=== PATIENT | male | born 1965 | race Caucasian/White ===

== ENCOUNTER 2018-05-07 08:56 | Day surgery (SDC) | payer BC ==
[~2018-05-07] VITALS: Ht 180.3 cm; Wt 101.2 kg
[~2018-05-07 08:56] MED LIST: CETI10TA18 PO; MAGN400C PO; METO-93 PO; POTA99TA8 PO
[2018-05-07] MEDS ORDERED: LACTATED RINGERS 1,000 ML IV SCH (09:26)
[2018-05-07] MEDS ORDERED: GABAPENTIN 300 MG CAPSULE PO ONE (09:30)
[2018-05-07] MEDS ORDERED: ONDANSETRON ODT 8 MG PO ONE (09:30)
[2018-05-07] MEDS ORDERED: ACETAMINOPHEN 500 MG TABLET PO ONE (09:30)
[2018-05-07] MEDS ORDERED: LIDOCAINE 1%-EPI 1:100K, 30ML ONE (09:43)
[2018-05-07] MEDS ORDERED: BUPIVACAINE/PF-EPI 0.5% 1:200K ONE (09:43)
[2018-05-07 09:55] VITALS: BP 143/87
[2018-05-07] MEDS ORDERED: FENTANYL PF 100 MCG/2ML ONE ×2 (10:54→12:56)
[2018-05-07] MEDS ORDERED: MIDAZOLAM 1 MG/ML, 2ML ONE (10:54)
[2018-05-07] MEDS ORDERED: CEFAZOLIN 1,000 MG ONE (10:57)
[2018-05-07] MEDS ORDERED: ONDANSETRON 2MG/ML, 2ML ONE (10:57)
[2018-05-07] MEDS ORDERED: DEXAMETHASONE 4 MG/ML, 1ML ONE (10:57)
[2018-05-07] MEDS ORDERED: PROPOFOL 10 MG/ML, 20ML ONE (10:57)
[2018-05-07] MEDS ORDERED: KETOROLAC 30 MG/1 ML ONE (11:53)
[2018-05-07] MEDS ORDERED: ONDANSETRON 2MG/ML, 2ML IV PRN (12:30)
[2018-05-07] MEDS ORDERED: HYDROmorphone 1 MG/ML, 1ML IV PRN (12:30)
[2018-05-07] MEDS ORDERED: ALBUTEROL/IPRATROPIUM 2.5MG/0.5MG, 3 ML NPPB PRN (12:30)
[2018-05-07] MEDS ORDERED: OXYcodone 5 MG/5 ML ORAL.SOL UDC PO PRN (12:30)
[2018-05-07] MEDS ORDERED: [UNRECOGNIZED DRUG - REMARK] MC SCH (12:30)
[2018-05-07] MEDS ORDERED: LABETALOL 5MG/ML, 20ML IV PRN (12:30)
[2018-05-07] MEDS ORDERED: MEPERIDINE/PF 25MG/0.5ML IVPush PRN (12:30)
[2018-05-07] MEDS ORDERED: MIDAZOLAM 1 MG/ML, 2ML IV PRN (12:30)
[2018-05-07] MEDS ORDERED: SCOPOLAMINE PATCH, 1.5MG PATCH.TD72 TD PRN (12:30)
[2018-05-07] MEDS ORDERED: OXYcodone 5 MG/5 ML ORAL.SOL UDC ONE (12:56)
[2018-05-07] MEDS: FENTANYL PF 100 MCG/2ML IV PRN ×2 (13:01→13:07)
[2018-05-07] MEDS ORDERED: MAGNESIUM OXIDE 400 MG TABLET PO SCH (21:00)
[2018-05-07] MEDS ORDERED: POTASSIUM 99 MG PO SCH (21:00)
[2018-05-07] MEDS ORDERED: METOPROLOL SUCCINATE 50 MG TAB.ER.24H PO SCH (21:00)
[2018-05-07] MEDS ORDERED: CETIRIZINE 10 MG TABLET PO SCH (21:00)
[2018-05-08] MEDS ORDERED: METOPROLOL SUCCINATE 50 MG TAB.ER.24H PO SCH (09:00)
== END 2018-05-07 14:55 | disposition home or self-care (01) ==
LOC: OUT 08:56
PROVIDERS: ATTEND Orthopaedic Surgery
DX: S83.232A Complex tear of medial meniscus, current injury, left knee, initial encounter (principal); X58.XXXA Exposure to other specified factors, initial encounter; Y93.9 Activity, unspecified; Y92.9 Unspecified place or not applicable; Y99.9 Unspecified external cause status; M22.42 Chondromalacia patellae, left knee; I10 Essential (primary) hypertension; Z79.899 Other long term (current) drug therapy
CPT/HCPCS: 29881; J0690; J1100; J2250; J2405; J2704; J3010; J3490; J7120; Q0162; J1885

== ENCOUNTER 2020-09-08 13:35 | Emergency (ER) | payer BC ==
[~2020-09-08] VITALS: Ht 180.3 cm; Wt 106.4 kg
[2020-09-08] MEDS ORDERED: FLUORESCEIN OPHTHALMIC 1 MG STRIP ONE (14:21)
[2020-09-08] MEDS ORDERED: PROPARACAINE OPHTH 0.5%, 15ML ONE (14:22)
--- NOTE | 2020-09-08 15:59 | NUR ---
[facility] BEDSIDE FOR VA'S
[2020-09-08 16:03] VITALS: BP 195/112
--- NOTE | 2020-09-08 16:04 | NUR ---
PT BP IS ELEVATED WITH HX OF HTN. PT STATES HE DID NOT TAKE HIS MORNING BP MEDS TODAY. PT TAKES METOPROLOL UNKNOWN DOSE. PROVIDER MADE AWARE.
== END 2020-09-08 16:39 | disposition home or self-care (01) ==
LOC: ED 16:20
DX: T15.02XA Foreign body in cornea, left eye, initial encounter (principal); H57.12 Ocular pain, left eye; X58.XXXA Exposure to other specified factors, initial encounter; Y93.89 Activity, other specified; Y92.89 Other specified places as the place of occurrence of the external cause; Y99.0 Civilian activity done for income or pay
CPT/HCPCS: 65222; 99284